=== PATIENT | male | born 1985 | race Caucasian/White ===

== ENCOUNTER 2016-07-06 14:29 | Emergency (ER) | payer SELFPAY ==
[~2016-07-06 14:29] MED LIST: CLIN150C PO; PERCOCET PO
--- NOTE | 2016-07-06 15:08 | EDDOCDS ---
Physician Documentation [facility] Name: Hernandez Jameson Age: 31 yrs Sex: Male : 1985 Arrival Date: 07/06/2016 Time: 14:29 Bed I1 / M1 Private MD: NO PRIMARY PHYSICIAN, . Disposition: 07/06/16 15:02 Discharged to Home/Self Care. Impression: Dental caries - Tooth Pain/Abscess/Fracture. - Condition is Stable. - Discharge Instructions: Dental Abscess, Dental Fracture, Dental Pain, [id number]. - Prescriptions for Clindamycin HCl 300 mg Oral Capsule - take 1 capsule by ORAL route every 6 hours; 40 capsule. Ibuprofen 800 mg Oral Tablet - take 1 tablet by ORAL route every 8 hours As needed take with food; 30 tablet. [place] 5- 325 mg Oral Tablet - take 1 tablet by ORAL route every 6 hours As needed MDD: 4 tabs; 10 tablet. - Work Release Form - 1 day, Medication Reconciliation, Local Pharmacy Hours, Referral List Call for Appointment, Dental Referral List form. - [facility] ; When: 1 - 2 days; Reason: Recheck today's complaints, Continuance of care. Follow up: Dentist Your; When: 1 - 2 days; Reason: Further diagnostic work-up, Recheck today's complaints, Continuance of care. Follow up: Emergency Department; Reason: Worsening of conditions. - Problem is new. - Symptoms are unchanged. Historical: - Allergies: Augmentin (Rash); PENICILLINS (Rash); - Home Meds: 1. hydrocodone-acetaminophen 5-325 mg Oral tab 1 tab every 4-6 hours (Last dose: 05/05/2016) - PMHx: right knee pain; dental caries; - PSHx: right knee orthoscopy; oral surgery; - Social history: Smoking status: Patient uses tobacco products, heavy tobacco smoker. No barriers to communication noted, Speaks appropriately for age. - Family history: Not pertinent. - : The pt / caregiver states he / she is not on anticoagulants. Home medication list is obtained from the patient. - Exposure Risk Screening:: None identified. Vital Signs: 07/06 14:31 BP 132 / 82 RA Sitting (auto/lg); Pulse 89; Resp 18; Temp 98.1(O); Pulse Ox 98% on R/A; rs6 Weight 104.33 kg / 230.01 lbs (R); Height 6 ft. 4 in. (193.04 cm) (R); Pain 9; 14:31 Body Mass Index 28.00 (104.33 kg, 193.04 cm) rs6 MDM: 14:54 Financial registration complete. Signatures: Chelsi Forman, Reg Reg lg Parvin Charles, KINGC PARmC ef1 Avery Kearns, RN RN ml6 Adela PintoRN RN [id number] MTDD
--- NOTE | 2016-07-06 15:08 | EDDOCDS ---
Nurse's Notes [facility] Name: Hernandez Jameson Age: 31 yrs Sex: Male : 1985 Arrival Date: 07/06/2016 Time: 14:29 Bed I1 / M1 Private MD: NO PRIMARY PHYSICIAN, . Diagnosis: Dental caries-Tooth Pain/Abscess/Fracture Presentation: 07/06 14:32 Presenting complaint: Patient states: states that he is in between insurances and has ml6 no Rx for hydrocodone and he also broke a tooth. Adult Sepsis Screening: The patient does not have new or worsening altered mentation. Patient's respiratory rate is less than 22. Systolic blood pressure is greater than 100. Patient has a qSOFA score of 0- Negative Sepsis Screen. Suicide/Homicide risk assessment- the patient denies having any suicidal and/or homicidal ideations and does not present with any other emotional, behavioral or mental health complaints. Status: Patient is not a services coordinator or dependent. Transition of care: patient was not received from another setting of care. 14:32 Acuity: ENMANUEL Level 5 ml6 14:32 Method Of Arrival: Walkin/Carried/Asstd ml6 Triage Assessment: 14:46 General: Appears in no apparent distress, comfortable, Behavior is appropriate for age, ml6 cooperative. Pain: Location: mouth Pain currently is 5 out of 10 on a pain scale. Pain does not radiate. Quality of pain is described as aching, Pain began years ago. Is continuous. HIV screening NA for this visit Offered previously. The patient is triaged at the bedside. See Assessment in Nurses Notes section of ED record. EENT: Poor dentition noted. Reports pain in mouth. Cardiovascular: No deficits noted. Historical: - Allergies: Augmentin (Rash); PENICILLINS (Rash); - Home Meds: 1. hydrocodone-acetaminophen 5-325 mg Oral tab 1 tab every 4-6 hours (Last dose: 05/05/2016) - PMHx: right knee pain; dental caries; - PSHx: right knee orthoscopy; oral surgery; - Social history: Smoking status: Patient uses tobacco products, heavy tobacco smoker. No barriers to communication noted, Speaks appropriately for age. - Family history: Not pertinent. - : The pt / caregiver states he / she is not on anticoagulants. Home medication list is obtained from the patient. - Exposure Risk Screening:: None identified. Screenin:06 Screening information is obtained from the patient. Fall risk: No risks identified. ml6 Assistance ADL's: requires no assistance with activities of daily living. Abuse/DV Screen: The patient / caregiver reports he/she is: not in a situation that causes fear, pain or injury. Nutritional screening: No deficits noted. Advance Directives: Currently, there is no health care proxy. home support is adequate. Assessment: 14:33 General: see triage assessment. ml6 Vital Signs: 14:31 BP 132 / 82 RA Sitting (auto/lg); Pulse 89; Resp 18; Temp 98.1(O); Pulse Ox 98% on R/A; rs6 Weight 104.33 kg (R); Height 6 ft. 4 in. (193.04 cm) (R); Pain 9/10; 14:31 Body Mass Index 28.00 (104.33 kg, 193.04 cm) rs6 Vitals: 14:31 Log In Time: July 06, 2016 at 14:31. rs6 ED Course: 14:31 Patient visited by Vanessa Pal PCA. rs6 14:31 NO PRIMARY PHYSICIAN, . is Private Physician. rs6 14:31 Patient moved to Waiting rs6 14:32 Patient visited by Vanessa Pal PCA. rs6 14:32 Patient moved to Pre RCE rs6 14:33 Patient moved to I1 / M1 ml6 14:34 Parvin Charles PA-C is PHCP. ef1 14:34 Vanessa Peterson MD is Attending Physician. ef1 14:34 Patient visited by Parvin Charles PA-C. ef1 14:41 Triage Initiated ml6 15:02 [facility] is Referral Physician. ef1 15:02 Your, Dentist is Referral Physician. ef1 15:06 The patient / caregiver is instructed regarding the plan of care and ED course. ml6 15:06 No IV's were initiated during this patient's visit. No procedures done that require ml6 assistance. Order Results: There are currently no results for this order. Outcome: 15:02 Discharge ordered by Provider. ef1 15:07 Discharge Assessment: patient administered narcotics - no. The following High Risk ml6 Discharge criteria are identified: None. Discharged to home ambulatory. Condition: stable. Discharge instructions given to patient, Instructed on discharge instructions, follow up and referral plans. medication usage, Demonstrated understanding of instructions, medications, Pt was receptive of discharge instructions/ teaching. Prescriptions given X 4. No special radiology studies were completed. Property :Personal belongings accompany Pt. 15:08 Patient left the ED. ml6 Signatures: Parvin Charles, [place] FIGUEROA ef1 Avery Kearns RN RN ml6 Adela Pinto RN RN [id number] Vanessa Pal, JESU CUT OUT PRESS OPERATOR rs6 MTDD
--- NOTE | 2016-07-08 16:08 | EDDOCDS ---
Physician Documentation [facility] Name: Hernandez Jameson Age: 31 yrs Sex: Male : 1985 Arrival Date: 07/06/2016 Time: 14:29 Bed I1 / M1 Private MD: NO PRIMARY PHYSICIAN, . Disposition: 07/06/16 15:02 Discharged to Home/Self Care. Impression: Dental caries - Tooth Pain/Abscess/Fracture. - Condition is Stable. - Discharge Instructions: Dental Abscess, Dental Fracture, Dental Pain, [id number]. - Prescriptions for Clindamycin HCl 300 mg Oral Capsule - take 1 capsule by ORAL route every 6 hours; 40 capsule. Ibuprofen 800 mg Oral Tablet - take 1 tablet by ORAL route every 8 hours As needed take with food; 30 tablet. [place] 5- 325 mg Oral Tablet - take 1 tablet by ORAL route every 6 hours As needed MDD: 4 tabs; 10 tablet. - Work Release Form - 1 day, Medication Reconciliation, Local Pharmacy Hours, Referral List Call for Appointment, Dental Referral List form. - Follow up: [facility] ; When: 1 - 2 days; Reason: Recheck today's complaints, Continuance of care. Follow up: Dentist Your; When: 1 - 2 days; Reason: Further diagnostic work-up, Recheck today's complaints, Continuance of care. Follow up: Emergency Department; Reason: Worsening of conditions. - Problem is new. - Symptoms are unchanged. Historical: - Allergies: Augmentin (Rash); PENICILLINS (Rash); - Home Meds: 1. hydrocodone-acetaminophen 5-325 mg Oral tab 1 tab every 4-6 hours (Last dose: 05/05/2016) - PMHx: right knee pain; dental caries; - PSHx: right knee orthoscopy; oral surgery; - Social history: Smoking status: Patient uses tobacco products, heavy tobacco smoker. No barriers to communication noted, Speaks appropriately for age. - Family history: Not pertinent. - : The pt / caregiver states he / she is not on anticoagulants. Home medication list is obtained from the patient. - Exposure Risk Screening:: None identified. Vital Signs: 07/06 14:31 BP 132 / 82 RA Sitting (auto/lg); Pulse 89; Resp 18; Temp 98.1(O); Pulse Ox 98% on R/A; rs6 Weight 104.33 kg / 230.01 lbs (R); Height 6 ft. 4 in. (193.04 cm) (R); Pain 9/10; 14:31 Body Mass Index 28.00 (104.33 kg, 193.04 cm) rs6 MDM: 14:54 Financial registration complete. lg 15:18 [facility] Payment Agreement was scanned into [employer] and attached to record. lg 16:04 T-Sheet-- Draft Copy was scanned into [employer] and attached to record. gb Signatures: Hilda Mera, Reg Reg gb Chelsi Forman, Reg Reg lg Parvin Charles, PA-C PA-C ef1 Avery Kearns, RN RN ml6 Adela PintoRN RN [id number] The chart was reviewed and I authenticate all verbal orders and agree with the evaluation and treatment provided.Attachments: 15:18 [facility] Payment Agreement lg 16:04 T-Sheet-- Draft Copy gb Chart Complete MTDD
--- NOTE | 2016-07-08 16:08 | EDDOCDS ---
Nurse's Notes [facility] Name: Hernandez Jameson Age: 31 yrs Sex: Male : 1985 Arrival Date: 07/06/2016 Time: 14:29 Bed I1 / M1 Private MD: NO PRIMARY PHYSICIAN, . Diagnosis: Dental caries-Tooth Pain/Abscess/Fracture Presentation: 07/06 14:32 Presenting complaint: Patient states: states that he is in between insurances and has ml6 no Rx for hydrocodone and he also broke a tooth. Adult Sepsis Screening: The patient does not have new or worsening altered mentation. Patient's respiratory rate is less than 22. Systolic blood pressure is greater than 100. Patient has a qSOFA score of 0- Negative Sepsis Screen. Suicide/Homicide risk assessment- the patient denies having any suicidal and/or homicidal ideations and does not present with any other emotional, behavioral or mental health complaints. Status: Patient is not a account service associate or dependent. Transition of care: patient was not received from another setting of care. 14:32 Acuity: ENMANUEL Level 5 ml6 14:32 Method Of Arrival: Walkin/Carried/Asstd ml6 Triage Assessment: 14:46 General: Appears in no apparent distress, comfortable, Behavior is appropriate for age, ml6 cooperative. Pain: Location: mouth Pain currently is 5 out of 10 on a pain scale. Pain does not radiate. Quality of pain is described as aching, Pain began years ago. Is continuous. HIV screening NA for this visit Offered previously. The patient is triaged at the bedside. See Assessment in Nurses Notes section of ED record. EENT: Poor dentition noted. Reports pain in mouth. Cardiovascular: No deficits noted. Historical: - Allergies: Augmentin (Rash); PENICILLINS (Rash); - Home Meds: 1. hydrocodone-acetaminophen 5-325 mg Oral tab 1 tab every 4-6 hours (Last dose: 05/05/2016) - PMHx: right knee pain; dental caries; - PSHx: right knee orthoscopy; oral surgery; - Social history: Smoking status: Patient uses tobacco products, heavy tobacco smoker. No barriers to communication noted, Speaks appropriately for age. - Family history: Not pertinent. - : The pt / caregiver states he / she is not on anticoagulants. Home medication list is obtained from the patient. - Exposure Risk Screening:: None identified. Screenin:06 Screening information is obtained from the patient. Fall risk: No risks identified. ml6 Assistance ADL's: requires no assistance with activities of daily living. Abuse/DV Screen: The patient / caregiver reports he/she is: not in a situation that causes fear, pain or injury. Nutritional screening: No deficits noted. Advance Directives: Currently, there is no health care proxy. home support is adequate. Assessment: 14:33 General: see triage assessment. ml6 Vital Signs: 14:31 BP 132 / 82 RA Sitting (auto/lg); Pulse 89; Resp 18; Temp 98.1(O); Pulse Ox 98% on R/A; rs6 Weight 104.33 kg (R); Height 6 ft. 4 in. (193.04 cm) (R); Pain 9/10; 14:31 Body Mass Index 28.00 (104.33 kg, 193.04 cm) rs6 Vitals: 14:31 Log In Time: July 06, 2016 at 14:31. rs6 ED Course: 14:31 Patient visited by Vanessa Pal PCA. rs6 14:31 NO PRIMARY PHYSICIAN, . is Private Physician. rs6 14:31 Patient moved to Waiting rs6 14:32 Patient visited by Vanessa Pal PCA. rs6 14:32 Patient moved to Pre RCE rs6 14:33 Patient moved to I1 / M1 ml6 14:34 Parvin Charles PA-C is PHCP. ef1 14:34 Vanessa Peterson MD is Attending Physician. ef1 14:34 Patient visited by Parvin Charles PA-C. ef1 14:41 Triage Initiated ml6 15:02 [facility] is Referral Physician. ef1 15:02 Your, Dentist is Referral Physician. ef1 15:06 The patient / caregiver is instructed regarding the plan of care and ED course. ml6 15:06 No IV's were initiated during this patient's visit. No procedures done that require ml6 assistance. 15:18 [facility] [place] Agreement was scanned into [employer] and attached to record. lg 16:04 T-Sheet-- Draft Copy was scanned into [employer] and attached to record. gb Order Results: There are currently no results for this order. Outcome: 15:02 Discharge ordered by Provider. ef1 15:07 Discharge Assessment: patient administered narcotics - no. The following High Risk ml6 Discharge criteria are identified: None. Discharged to home ambulatory. Condition: stable. Discharge instructions given to patient, Instructed on discharge instructions, follow up and referral plans. medication usage, Demonstrated understanding of instructions, medications, Pt was receptive of discharge instructions/ teaching. Prescriptions given X 4. No special radiology studies were completed. Property :Personal belongings accompany Pt. 15:08 Patient left the ED. ml6 Signatures: Hilda Mera, Reg Reg gb Chelsi Forman, Reg Reg lg Parvin Charles, PA-C PA-C ef1 Avery Kearns, RN RN ml6 Adela Pinto,MARY RN [id number] Vanessa Pal, JESU SUPERVISOR [employer] rs6 Chart Complete [facility]
--- NOTE | 2016-07-08 16:08 | EDDOCDS ---
Physician Documentation [facility] Name: Hernandez Jameson Age: 31 yrs Sex: Male : 1985 Arrival Date: 07/06/2016 Time: 14:29 Bed I1 / M1 Private MD: NO PRIMARY PHYSICIAN, . Disposition: 07/06/16 15:02 Discharged to Home/Self Care. Impression: Dental caries - Tooth Pain/Abscess/Fracture. - Condition is Stable. - Discharge Instructions: Dental Abscess, Dental Fracture, Dental Pain, [id number]. - Prescriptions for Clindamycin HCl 300 mg Oral Capsule - take 1 capsule by ORAL route every 6 hours; 40 capsule. Ibuprofen 800 mg Oral Tablet - take 1 tablet by ORAL route every 8 hours As needed take with food; 30 tablet. [place] 5- 325 mg Oral Tablet - take 1 tablet by ORAL route every 6 hours As needed MDD: 4 tabs; 10 tablet. - Work Release Form - 1 day, Medication Reconciliation, Local Pharmacy Hours, Referral List Call for Appointment, Dental Referral List form. - Follow up: [facility] ; When: 1 - 2 days; Reason: Recheck today's complaints, Continuance of care. Follow up: Dentist Your; When: 1 - 2 days; Reason: Further diagnostic work-up, Recheck today's complaints, Continuance of care. Follow up: Emergency Department; Reason: Worsening of conditions. - Problem is new. - Symptoms are unchanged. Historical: - Allergies: Augmentin (Rash); PENICILLINS (Rash); - Home Meds: 1. hydrocodone-acetaminophen 5-325 mg Oral tab 1 tab every 4-6 hours (Last dose: 05/05/2016) - PMHx: right knee pain; dental caries; - PSHx: right knee orthoscopy; oral surgery; - Social history: Smoking status: Patient uses tobacco products, heavy tobacco smoker. No barriers to communication noted, Speaks appropriately for age. - Family history: Not pertinent. - : The pt / caregiver states he / she is not on anticoagulants. Home medication list is obtained from the patient. - Exposure Risk Screening:: None identified. Vital Signs: 07/06 14:31 BP 132 / 82 RA Sitting (auto/lg); Pulse 89; Resp 18; Temp 98.1(O); Pulse Ox 98% on R/A; rs6 Weight 104.33 kg / 230.01 lbs (R); Height 6 ft. 4 in. (193.04 cm) (R); Pain 9/10; 14:31 Body Mass Index 28.00 (104.33 kg, 193.04 cm) rs6 MDM: 14:54 Financial registration complete. lg 15:18 [facility] Payment Agreement was scanned into [employer] and attached to record. lg 16:04 T-Sheet-- Draft Copy was scanned into [employer] and attached to record. gb Signatures: Hilda Mera, Reg Reg gb Chelsi Forman, Reg Reg lg Parvin Charles, PA-C PA-C ef1 Avery Kearns, RN RN ml6 Adela PintoRN RN [id number] The chart was reviewed and I authenticate all verbal orders and agree with the evaluation and treatment provided.Attachments: 15:18 [facility] Payment Agreement lg 16:04 T-Sheet-- Draft Copy gb Chart Complete MTDD
== END 2016-07-06 15:08 | disposition home or self-care (01) ==
LOC: M ED 14:29
DX: K04.7 Periapical abscess without sinus (principal); K02.9 Dental caries, unspecified; S02.5XXA Fracture of tooth (traumatic), initial encounter for closed fracture; X58.XXXA Exposure to other specified factors, initial encounter; Y92.89 Other specified places as the place of occurrence of the external cause; Y93.89 Activity, other specified; Y99.8 Other external cause status; M25.561 Pain in right knee; Z88.0 Allergy status to penicillin; Z88.1 Allergy status to other antibiotic agents; F17.210 Nicotine dependence, cigarettes, uncomplicated

== ENCOUNTER 2016-07-18 17:22 | Emergency (ER) | payer OTHER, SELFPAY ==
--- NOTE | 2016-07-18 18:34 | REP ---
Clinical: Trauma. Technique: AP, lateral, swimmers view. Findings: Degenerative changes including bridging osteophyte at the T9-10 level. Subtle compression deformities involving T9 and T10 on lateral radiograph are suggested and of indeterminate age. Alignment and kyphosis is relatively maintained. Impression: Degenerative changes as described above. Subtle compression deformities at T9 and T10 of indeterminate age. Signed by Dre Negro MD 07/18/2016 06:24 P
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
== END 2016-07-18 19:58 | disposition home or self-care (01) ==
LOC: M ED 17:22
DX: S22.079A Unspecified fracture of T9-T10 vertebra, initial encounter for closed fracture (principal); Z88.0 Allergy status to penicillin; Z88.1 Allergy status to other antibiotic agents; Z88.5 Allergy status to narcotic agent; V49.40XA Driver injured in collision with unspecified motor vehicles in traffic accident, initial encounter; Y92.410 Unspecified street and highway as the place of occurrence of the external cause; Y93.89 Activity, other specified; Y99.9 Unspecified external cause status

== ENCOUNTER 2016-07-26 18:11 | Emergency (ER) | payer OTHER ==
[2016-07-26] MEDS ORDERED: NORCO 5/325MG TABLET (BULK) As Ordered ONE (19:35)
--- NOTE | 2016-07-26 19:50 | EDDOCDS ---
Physician Documentation [facility] Name: Hernandez Jameson Age: 31 yrs Sex: Male : 1985 Arrival Date: 07/26/2016 Time: 18:11 Bed TR4 Private MD: NO PRIMARY PHYSICIAN, . Disposition: 07/26/16 19:06 Discharged to Home/Self Care. Impression: Low back pain. - Condition is Stable. - Discharge Instructions: Back Pain, Adult, Musculoskeletal Pain. - Prescriptions for [place] 5- 325 mg Oral Tablet - take 1 tablet by ORAL route every 6 hours As needed MDD: 4 tabs; 15 tablet. - Medication Reconciliation, Work Release Form - 2 day, Local Pharmacy Hours form. - [facility]; When: Call to arrange an appointment; Reason: Recheck today's complaints, Continuance of care. - Problem is an ongoing problem. - Symptoms are unchanged. Historical: - Allergies: Augmentin (Rash); codeine; PENICILLINS (Rash); - Home Meds: 1. hydrocodone-acetaminophen 5-325 mg Oral tab 1 tab every 4-6 hours - PMHx: Dental caries; right knee pain; - PSHx: right knee orthoscopy; oral surgery; - Social history: No barriers to communication noted, The patient speaks fluent Indian, Speaks appropriately for age, Smoking status: Patient states former smoker of tobacco. - Family history: Not pertinent. - : The pt / caregiver states he / she is not on anticoagulants. Home medication list is obtained from the patient. - Exposure Risk Screening:: None identified. Vital Signs: 07/26 18:12 BP 123 / 82; Pulse 69; Resp 16; Temp 97.9(O); Pulse Ox 100% ; Weight 104.33 kg / 230.01 cmb lbs; Height 6 ft. 4 in. (193.04 cm); Pain 10/10; 19:47 BP 123 / 88; Pulse 65; Resp 18; Temp 98; Pulse Ox 99% ; ms18 18:12 Body Mass Index 28.00 (104.33 kg, 193.04 cm) cmb MDM: 19:04 HYDROcodone-acetaminophen 4 pack- 5 mg-325 mg 1 packets PO Per package directions; mo1 Dispense with patient. 1 po q4h prn for pain ordered. 19:21 Financial registration complete. zo Administered Medications: 19:46 Drug: HYDROcodone-acetaminophen 4 pack- 1 packets [hydrocodone 5 mg-acetaminophen 325 ms18 mg tablet (1 tabs)] {Co-Signature: pita (Krystal Morillo RN).} Route: PO; 19:47 Follow up: Response: Med's dispensed home ms18 Signatures: Olivia Newman Michael, PA PA mo1 Millicent Jackman RN RN ms18 Eboni Cristina RN RN [id number] Krystal Morillo RN, mcp MTDD
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
--- NOTE | 2016-07-28 20:51 | EDDOCDS ---
Physician Documentation [facility] Name: Hernandez Jameson Age: 31 yrs Sex: Male : 1985 Arrival Date: 07/26/2016 Time: 18:11 Bed TR4 Private MD: NO PRIMARY PHYSICIAN, . Disposition: 07/26/16 19:06 Discharged to Home/Self Care. Impression: Low back pain. - Condition is Stable. - Discharge Instructions: Back Pain, Adult, Musculoskeletal Pain. - Prescriptions for [place] 5- 325 mg Oral Tablet - take 1 tablet by ORAL route every 6 hours As needed MDD: 4 tabs; 15 tablet. - Medication Reconciliation, Work Release Form - 2 day, Local Pharmacy Hours form. - Follow up: [facility]; When: Call to arrange an appointment; Reason: Recheck today's complaints, Continuance of care. - Problem is an ongoing problem. - Symptoms are unchanged. Historical: - Allergies: Augmentin (Rash); codeine; PENICILLINS (Rash); - Home Meds: 1. hydrocodone-acetaminophen 5-325 mg Oral tab 1 tab every 4-6 hours - PMHx: Dental caries; right knee pain; - PSHx: right knee orthoscopy; oral surgery; - Social history: No barriers to communication noted, The patient speaks fluent East Timorese, Speaks appropriately for age, Smoking status: Patient states former smoker of tobacco. - Family history: Not pertinent. - : The pt / caregiver states he / she is not on anticoagulants. Home medication list is obtained from the patient. - Exposure Risk Screening:: None identified. Vital Signs: 07/26 18:12 BP 123 / 82; Pulse 69; Resp 16; Temp 97.9(O); Pulse Ox 100% ; Weight 104.33 kg / 230.01 cmb lbs; Height 6 ft. 4 in. (193.04 cm); Pain 10/10; 19:47 BP 123 / 88; Pulse 65; Resp 18; Temp 98; Pulse Ox 99% ; ms18 18:12 Body Mass Index 28.00 (104.33 kg, 193.04 cm) cmb MDM: 19:04 HYDROcodone-acetaminophen 4 pack- 5 mg-325 mg 1 packets PO Per package directions; mo1 Dispense with patient. 1 po q4h prn for pain ordered. 19:21 Financial registration complete. zo 19:59 [facility] Payment Agreement was scanned into [employer] and attached to record. zo 07/27 09:29 T-Sheet-- Draft Copy was scanned into [employer] and attached to record. [facility] Administered Medications: 07/26 19:46 Drug: HYDROcodone-acetaminophen 4 pack- 1 packets [hydrocodone 5 mg-acetaminophen 325 ms18 mg tablet (1 tabs)] {Co-Signature: mcp (Krystal Morillo RN).} Route: PO; 19:47 Follow up: Response: Med's dispensed home ms18 Signatures: Olivia Newman Michael, PA PA mo1 Millicent Jackman RN RN ms18 Eboni Cristina RN RN kc3 Vanessa Mayorga RN, mcp The chart was reviewed and I authenticate all verbal orders and agree with the evaluation and treatment provided.Attachments: 19:59 [facility] Payment Agreement zo 07/27 09:29 T-Sheet-- Draft Copy [facility] Chart Complete MTDD
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
--- NOTE | 2016-07-28 20:51 | EDDOCDS ---
Physician Documentation [facility] Name: Hernandez Jameson Age: 31 yrs Sex: Male : 1985 Arrival Date: 07/26/2016 Time: 18:11 Bed TR4 Private MD: NO PRIMARY PHYSICIAN, . Disposition: 07/26/16 19:06 Discharged to Home/Self Care. Impression: Low back pain. - Condition is Stable. - Discharge Instructions: Back Pain, Adult, Musculoskeletal Pain. - Prescriptions for [place] 5- 325 mg Oral Tablet - take 1 tablet by ORAL route every 6 hours As needed MDD: 4 tabs; 15 tablet. - Medication Reconciliation, Work Release Form - 2 day, Local Pharmacy Hours form. - Follow up: [facility]; When: Call to arrange an appointment; Reason: Recheck today's complaints, Continuance of care. - Problem is an ongoing problem. - Symptoms are unchanged. Historical: - Allergies: Augmentin (Rash); codeine; PENICILLINS (Rash); - Home Meds: 1. hydrocodone-acetaminophen 5-325 mg Oral tab 1 tab every 4-6 hours - PMHx: Dental caries; right knee pain; - PSHx: right knee orthoscopy; oral surgery; - Social history: No barriers to communication noted, The patient speaks fluent Bulgarian, Speaks appropriately for age, Smoking status: Patient states former smoker of tobacco. - Family history: Not pertinent. - : The pt / caregiver states he / she is not on anticoagulants. Home medication list is obtained from the patient. - Exposure Risk Screening:: None identified. Vital Signs: 07/26 18:12 BP 123 / 82; Pulse 69; Resp 16; Temp 97.9(O); Pulse Ox 100% ; Weight 104.33 kg / 230.01 cmb lbs; Height 6 ft. 4 in. (193.04 cm); Pain 10/10; 19:47 BP 123 / 88; Pulse 65; Resp 18; Temp 98; Pulse Ox 99% ; ms18 18:12 Body Mass Index 28.00 (104.33 kg, 193.04 cm) cmb MDM: 19:04 HYDROcodone-acetaminophen 4 pack- 5 mg-325 mg 1 packets PO Per package directions; mo1 Dispense with patient. 1 po q4h prn for pain ordered. 19:21 Financial registration complete. zo 19:59 [facility] Payment Agreement was scanned into [email or web address] and attached to record. zo 07/27 09:29 T-Sheet-- Draft Copy was scanned into [email or web address] and attached to record. [facility] Administered Medications: 07/26 19:46 Drug: HYDROcodone-acetaminophen 4 pack- 1 packets [hydrocodone 5 mg-acetaminophen 325 ms18 mg tablet (1 tabs)] {Co-Signature: mcp (Krystal Morillo RN).} Route: PO; 19:47 Follow up: Response: Med's dispensed home ms18 Signatures: Olivia Newman Michael, PA PA mo1 Millicent Jackman RN RN ms18 Eboni Cristina RN RN kc3 Vanessa Mayorga RN, mcp The chart was reviewed and I authenticate all verbal orders and agree with the evaluation and treatment provided.Attachments: 19:59 [facility] Payment Agreement zo 07/27 09:29 T-Sheet-- Draft Copy [facility] Chart Complete MTDD
== END 2016-07-26 19:49 | disposition home or self-care (01) ==
LOC: M ED 18:11
DX: S39.012A Strain of muscle, fascia and tendon of lower back, initial encounter (principal); X58.XXXA Exposure to other specified factors, initial encounter; Y92.9 Unspecified place or not applicable; Y93.9 Activity, unspecified; Y99.9 Unspecified external cause status; K02.9 Dental caries, unspecified; M25.561 Pain in right knee; Z87.891 Personal history of nicotine dependence; Z88.5 Allergy status to narcotic agent; Z88.0 Allergy status to penicillin

== ENCOUNTER 2016-08-03 13:47 | Emergency (ER) | payer OTHER ==
[~2016-08-03] VITALS: Ht 193 cm; Wt 104.3 kg
[2016-08-03 13:47] VITALS: BP 123/80
[2016-08-03] MEDS ORDERED: KETOROLAC 30 MG/ML VIAL (J1885) IV ONE (15:15)
[2016-08-03] MEDS ORDERED: NAPR500T PO (16:32)
[2016-08-03] MEDS ORDERED: LIDO5DIS36 TD (16:32)
[2016-08-03] MEDS ORDERED: CYCL10TA PO (16:32)
--- NOTE | 2016-08-04 07:56 | REP ---
THORACIC SPINE: AP and lateral views of the thoracic spine performed. Mild compression deformities are again see of the T3 vertebral body, T10, T11 and T12. Scattered spurring is seen. There is no change since the prior study of 07/18/2016. IMPRESSION: Stable exam. Signed by Carroll Salazar MD 08/04/2016 04:10 P
== END 2016-08-03 17:23 | disposition home or self-care (01) ==
LOC: M ED 15:40
DX: S22.078D Other fracture of T9-T10 vertebra, subsequent encounter for fracture with routine healing (principal); V49.9XXD Car occupant (driver) (passenger) injured in unspecified traffic accident, subsequent encounter; Y92.410 Unspecified street and highway as the place of occurrence of the external cause; Y93.89 Activity, other specified; Y99.8 Other external cause status; F17.200 Nicotine dependence, unspecified, uncomplicated; Z88.0 Allergy status to penicillin; Z88.5 Allergy status to narcotic agent
CPT/HCPCS: 72072; 96374; 99281; J1885

== ENCOUNTER 2017-02-24 18:28 | Emergency (ER) | payer OTHER ==
[~2017-02-24] VITALS: Ht 193 cm; Wt 110.5 kg
[~2017-02-24 18:28] MED LIST changes: +CYCL10TA PO; +LIDO5DIS41 TD; +NAPR500T PO
[2017-02-24 18:29] VITALS: BP 129/75
== END 2017-02-24 20:22 | disposition left against medical advice (07) ==
LOC: M ED 18:28
DX: M54.2 Cervicalgia (principal); Z53.21 Procedure and treatment not carried out due to patient leaving prior to being seen by health care provider

== ENCOUNTER 2017-03-10 17:23 | Emergency (ER) | payer OTHER ==
[~2017-03-10] VITALS: Ht 193 cm; Wt 111.0 kg
[2017-03-10] MEDS ORDERED: KETOROLAC TROMETHAMINE 10 MG TAB PO ONE (19:15)
[2017-03-10] MEDS ORDERED: MOBI4TAB PO (20:19)
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
[2017-03-10 20:39] VITALS: BP 129/79
== END 2017-03-10 20:41 | disposition home or self-care (01) ==
LOC: M ED 17:23
DX: R07.2 Precordial pain (principal); M54.2 Cervicalgia; M25.532 Pain in left wrist; V43.52XA Car driver injured in collision with other type car in traffic accident, initial encounter; Y92.410 Unspecified street and highway as the place of occurrence of the external cause; Y93.9 Activity, unspecified; Y99.9 Unspecified external cause status; G89.29 Other chronic pain; M54.9 Dorsalgia, unspecified; Z79.899 Other long term (current) drug therapy; Z88.0 Allergy status to penicillin; Z88.5 Allergy status to narcotic agent

== ENCOUNTER 2017-06-30 10:26 | Emergency (ER) | payer MEDICAID, OTHER ==
[2017-06-30] MEDS: CYCLOBENZAPRINE 10 MG TAB PO ×2 (11:18)
[2017-06-30] MEDS: NORCO, ANEXSIA 5/325MG TABLET (HYDROcodone/ACETAMINOPHEN) PO ×2 (11:20)
== END 2017-06-30 11:35 | disposition home or self-care (01) ==
LOC: M ED 10:26
DX: S46.011A Strain of muscle(s) and tendon(s) of the rotator cuff of right shoulder, initial encounter (principal); S43.431A Superior glenoid labrum lesion of right shoulder, initial encounter; M75.31 Calcific tendinitis of right shoulder; M50.20 Other cervical disc displacement, unspecified cervical region; F17.200 Nicotine dependence, unspecified, uncomplicated; X58.XXXA Exposure to other specified factors, initial encounter; Y92.099 Unspecified place in other non-institutional residence as the place of occurrence of the external cause; Y93.89 Activity, other specified; Z88.0 Allergy status to penicillin; Z88.5 Allergy status to narcotic agent
CPT/HCPCS: 99282

== ENCOUNTER 2017-07-03 13:58 | Emergency (ER) | payer MEDICAID, OTHER | END 2017-07-03 15:15 | disposition home or self-care (01) | LOC: M ED 13:58 | DX: S46.911A Strain of unspecified muscle, fascia and tendon at shoulder and upper arm level, right arm, initial encounter (principal); Z76.0 Encounter for issue of repeat prescription; X58.XXXA Exposure to other specified factors, initial encounter; Y92.9 Unspecified place or not applicable; Y93.9 Activity, unspecified; Z79.899 Other long term (current) drug therapy; Z88.0 Allergy status to penicillin; Z88.5 Allergy status to narcotic agent; Z88.8 Allergy status to other drugs, medicaments and biological substances | CPT/HCPCS: 99284 ==

== ENCOUNTER → 2017-07-16 | Outpatient (CLI) | payer MEDICAID, OTHER | LOC: M RAD 14:36 | DX: M54.2 Cervicalgia (principal); M25.511 Pain in right shoulder; M79.621 Pain in right upper arm | CPT/HCPCS: 72141 ==

== ENCOUNTER 2017-10-05 12:36 | Inpatient (IN) | payer OTHER, MEDICAID ==
[2017-10-05] MEDS: PERCOCET 5MG/325MG TAB PO ×2 (13:33→20:55)
[2017-10-05] MEDS: GABAPENTIN 300 MG CAP PO (13:33)
[2017-10-05] MEDS: LR 1,000 ML IV ×2 (13:34→20:00)
[2017-10-05] MEDS ORDERED: MIDAZOLAM INJ 2 MG/2 ML VIAL (J2250) As Ordered (13:47)
[2017-10-05] MEDS ORDERED: fentaNYL 100 MCG/2 ML INJECTION (J3010) As Ordered ×4 (13:47→19:04)
[2017-10-05] MEDS ORDERED: ROCURONIUM BROMIDE 50 MG/5 ML VIAL As Ordered ×3 (13:48→17:44)
[2017-10-05] MEDS ORDERED: PROPOFOL 200 MG/20 ML VIAL As Ordered (13:48)
[2017-10-05] MEDS ORDERED: LIDOCAINE 2% INJ 100 MG/5 ML SDV (FOR ANES.) As Ordered (14:25)
[2017-10-05] MEDS: CLINDAMYCIN 900 MG in APPROPRIATE DILUENT 1 EA IV (14:55)
[2017-10-05] MEDS: THROMBIN SOLN 20,000 UNITS KIT As Ordered (17:14)
[2017-10-05] MEDS: BACITRACIN PWD 50,000 UNITS VIAL As Ordered (17:14)
[2017-10-05] MEDS ORDERED: dexameTHASONE 4 MG/ML 1ML VIAL (J1100) As Ordered ×2 (18:28)
[2017-10-05] MEDS ORDERED: METOCLOPRAMIDE INJ 10MG/2ML VIAL (J2765) As Ordered (18:28)
[2017-10-05] MEDS ORDERED: ONDANSETRON 4MG/2ML VIAL (J2405) As Ordered (18:29)
[2017-10-05] MEDS: methylPREDNISolone 500 MG VIAL (J2930) As Ordered (18:50)
[2017-10-05] MEDS: LIDOCAINE W/EPINEPHRINE 1% 20ML VIAL As Ordered (18:50)
[2017-10-05] MEDS ORDERED: CYCLOBENZAPRINE 10 MG TAB PO (20:00)
[2017-10-05] MEDS ORDERED: HYDROmorphone HCL 1 MG/ML SYRINGE (J1170) IV ×2 (20:00)
[2017-10-05] MEDS: D5W/LR 1,000 ML IV (20:00)
[2017-10-05] MEDS ORDERED: ONDANSETRON 4MG/2ML VIAL (J2405) IV (20:00)
[2017-10-05] MEDS ORDERED: PROMETHAZINE INJ 25 MG/ML VIAL (J2550) IV (20:00)
[2017-10-05] MEDS ORDERED: fentaNYL 100 MCG/2 ML INJECTION (J3010) IV (20:00)
[2017-10-05] MEDS: NORCO, ANEXSIA 5/325MG TABLET (HYDROcodone/ACETAMINOPHEN) PO (20:46)
[2017-10-06] MEDS: PERCOCET 5MG/325MG TAB PO ×3 (01:06→09:42)
[2017-10-06] MEDS: D5W/LR 1,000 ML IV (05:48)
== END 2017-10-06 11:45 | disposition home or self-care (01) | DRG 321 ==
LOC: M OR 12:36 → M MS5PR 20:19
PROC: 0RG2070 Fusion of 2 or more Cervical Vertebral Joints with Autologous Tissue Substitute, Anterior Approach, Anterior Column, Open Approach (ICD-10-PCS; principal; 2017-10-05 14:20)
PROC: 0QB30ZZ Excision of Left Pelvic Bone, Open Approach (ICD-10-PCS; 2017-10-05 14:20)
PROC: 0RB30ZZ Excision of Cervical Vertebral Disc, Open Approach (ICD-10-PCS; 2017-10-05 14:20)
DX: M50.20 Other cervical disc displacement, unspecified cervical region (principal)

== ENCOUNTER 2017-11-09 15:10 | Emergency (ER) | payer OTHER | END 2017-11-09 18:10 | disposition home or self-care (01) | LOC: M ED 15:10 | DX: Z76.0 Encounter for issue of repeat prescription (principal); M54.2 Cervicalgia; G89.29 Other chronic pain; Z98.1 Arthrodesis status; F17.200 Nicotine dependence, unspecified, uncomplicated; Z88.0 Allergy status to penicillin; Z79.899 Other long term (current) drug therapy | CPT/HCPCS: 99283 ==

== ENCOUNTER → 2017-11-25 | Outpatient (CLI) | payer OTHER | LOC: M OUTALCOH 08:10 | DX: Z03.89 Encounter for observation for other suspected diseases and conditions ruled out (principal) ==

== ENCOUNTER 2018-01-16 12:34 | Emergency (ER) | payer OTHER | END 2018-01-16 15:02 | disposition home or self-care (01) | LOC: M ED 12:34 | DX: Z76.0 Encounter for issue of repeat prescription (principal); G89.29 Other chronic pain; M54.2 Cervicalgia; Z79.899 Other long term (current) drug therapy; Z88.0 Allergy status to penicillin; Z88.8 Allergy status to other drugs, medicaments and biological substances | CPT/HCPCS: 99282 ==

== ENCOUNTER 2018-01-19 15:26 | Emergency (ER) | payer OTHER | END 2018-01-19 16:25 | disposition home or self-care (01) | LOC: M ED 15:26 | DX: Z76.0 Encounter for issue of repeat prescription (principal); M54.2 Cervicalgia; G89.29 Other chronic pain; F17.210 Nicotine dependence, cigarettes, uncomplicated; Z88.0 Allergy status to penicillin; Z79.899 Other long term (current) drug therapy | CPT/HCPCS: 99282 ==

== ENCOUNTER 2018-03-22 13:15 | Emergency (ER) | payer OTHER | END 2018-03-22 16:01 | disposition home or self-care (01) | LOC: M ED 13:15 | DX: M54.2 Cervicalgia (principal); G89.29 Other chronic pain; F17.210 Nicotine dependence, cigarettes, uncomplicated; Z79.899 Other long term (current) drug therapy | CPT/HCPCS: 99282 ==

== ENCOUNTER 2018-04-03 12:30 | Emergency (ER) | payer OTHER | END 2018-04-03 14:33 | disposition home or self-care (01) | LOC: M ED 12:30 | DX: Z76.0 Encounter for issue of repeat prescription (principal); G89.29 Other chronic pain; M54.2 Cervicalgia; Z88.0 Allergy status to penicillin; Z88.8 Allergy status to other drugs, medicaments and biological substances | CPT/HCPCS: 99283 ==

== ENCOUNTER 2018-08-29 11:58 | Emergency (ER) | payer OTHER ==
[~2018-08-29] VITALS: Ht 193 cm; Wt 113.6 kg
[2018-08-29 11:58] VITALS: BP 128/82
[~2018-08-29 11:58] MED LIST changes: +ACET300T52 PO; +GABA-843 PO; +HYDR-3715 PO; +IBUP-1022 PO; +IBUP200C25 PO; +KETO10TAB PO; +MOBI4TAB PO; +NAPR-837 PO; -NAPR500T PO; +OXYC1TAB23 PO; +PERC5TAB12 PO; -PERCOCET PO
[2018-08-29] MEDS ORDERED: OXYC1TAB23 PO (12:04)
[2018-08-29] MEDS ORDERED: IBUP80TA (12:04)
[2018-08-29] MEDS ORDERED: ROBA500T PO (12:40)
[2018-08-29] MEDS ORDERED: PERC5TAB12 PO (12:40)
[2018-08-29] MEDS ORDERED: PERCOCET 5MG/325MG TAB PO ONE (12:45)
[2018-08-29] MEDS ORDERED: METHOCARBAMOL 500 MG TAB PO ONE (12:45)
== END 2018-08-29 12:49 | disposition home or self-care (01) ==
LOC: M ED 11:58
DX: M47.12 Other spondylosis with myelopathy, cervical region (principal); M47.22 Other spondylosis with radiculopathy, cervical region; F17.210 Nicotine dependence, cigarettes, uncomplicated; Z88.8 Allergy status to other drugs, medicaments and biological substances; Z88.0 Allergy status to penicillin; Z79.899 Other long term (current) drug therapy

== ENCOUNTER 2018-10-12 17:16 | Emergency (ER) | payer OTHER ==
[~2018-10-12] VITALS: Ht 193 cm; Wt 113.6 kg
[2018-10-12 17:16] VITALS: BP 133/82
[~2018-10-12 17:16] MED LIST changes: +IBUP80TA; +ROBA500T PO
[2018-10-12] MEDS ORDERED: ACET300T52 (17:30)
[2018-10-12] MEDS ORDERED: NORC1TAB7 PO (18:03)
== END 2018-10-12 18:30 | disposition home or self-care (01) ==
LOC: M ED 17:16
DX: G89.29 Other chronic pain (principal); M54.2 Cervicalgia; Z88.0 Allergy status to penicillin; Z88.8 Allergy status to other drugs, medicaments and biological substances; F17.210 Nicotine dependence, cigarettes, uncomplicated

== ENCOUNTER 2018-11-21 14:06 | Emergency (ER) | payer OTHER ==
[~2018-11-21] VITALS: Ht 193 cm; Wt 102.3 kg
[~2018-11-21 14:06] MED LIST changes: +ACET300T52; +NORC1TAB7 PO
[2018-11-21] MEDS ORDERED: NORC1TAB7 PO (15:34)
[2018-11-21 15:48] VITALS: BP 117/68
[2018-12-07] MEDS ORDERED: NORC1TAB7 PO (13:41)
== END 2018-11-21 15:49 | disposition home or self-care (01) ==
LOC: M ED 14:06
DX: M54.2 Cervicalgia (principal); F17.210 Nicotine dependence, cigarettes, uncomplicated; Z88.1 Allergy status to other antibiotic agents

== ENCOUNTER 2018-11-28 15:09 | Emergency (ER) | payer OTHER ==
[~2018-11-28] VITALS: Ht 193 cm; Wt 104.7 kg
[2018-11-28 15:10] VITALS: BP 135/85
[2018-11-28] MEDS ORDERED: NABU-119 PO (15:32)
[2018-11-28] MEDS ORDERED: CYCL10TA PO (15:32)
[2018-11-28] MEDS ORDERED: HYDR-3713 PO (15:57)
[2018-12-07] MEDS ORDERED: NORC1TAB7 PO (13:41)
== END 2018-11-28 16:07 | disposition home or self-care (01) ==
LOC: M ED 15:09
DX: M54.12 Radiculopathy, cervical region (principal); Z88.0 Allergy status to penicillin; Z88.8 Allergy status to other drugs, medicaments and biological substances; F17.210 Nicotine dependence, cigarettes, uncomplicated

== ENCOUNTER 2019-02-17 16:49 | Emergency (ER) | payer OTHER, MEDICAID ==
[~2019-02-17] VITALS: Ht 193 cm; Wt 104.2 kg
[~2019-02-17 16:49] MED LIST changes: +HYDR-3713 PO; +NABU-119 PO
[2019-02-17 16:50] VITALS: BP 123/83
[2019-02-17] MEDS ORDERED: GABA-843 (16:55)
[2019-02-17] MEDS ORDERED: ACET300T52 (16:55)
[2019-02-17] MEDS ORDERED: NORC1TAB7 PO (17:43)
[2019-02-17] MEDS ORDERED: NORCO, ANEXSIA 5/325MG TABLET (HYDROcodone/ACETAMINOPHEN) PO ONE (18:15)
== END 2019-02-17 18:27 | disposition home or self-care (01) ==
LOC: M ED 16:49
DX: Z76.0 Encounter for issue of repeat prescription (principal); G89.29 Other chronic pain; M54.2 Cervicalgia; Z88.0 Allergy status to penicillin; Z88.8 Allergy status to other drugs, medicaments and biological substances; F17.210 Nicotine dependence, cigarettes, uncomplicated

== ENCOUNTER 2019-03-24 00:48 | Emergency (ER) | payer MEDICAID, OTHER ==
[~2019-03-24] VITALS: Ht 193 cm; Wt 107.6 kg
[~2019-03-24 00:48] MED LIST changes: +GABA-843
[2019-03-24] MEDS ORDERED: CARBAMIDE PEROXIDE 6.5% OTIC SOLN 15ML AU ONE (03:45)
[2019-03-24] MEDS ORDERED: DEBR6.5S4 AU (03:54)
[2019-03-24 04:05] VITALS: BP 121/68
== END 2019-03-24 04:08 | disposition home or self-care (01) ==
LOC: M ED 00:48
DX: H61.23 Impacted cerumen, bilateral (principal); F17.200 Nicotine dependence, unspecified, uncomplicated; Z88.1 Allergy status to other antibiotic agents; Z79.899 Other long term (current) drug therapy

== ENCOUNTER 2019-04-19 02:00 | Emergency (ER) | payer MEDICAID ==
[~2019-04-19] VITALS: Ht 193 cm; Wt 100.0 kg
[~2019-04-19 02:00] MED LIST changes: +DEBR6.5S4 AU
[2019-04-19] MEDS ORDERED: ACET300T52 (02:07)
[2019-04-19 02:25] VITALS: BP 136/78
[2019-04-19] MEDS ORDERED: ONDANSETRON 4 MG ORAL DISINTEGRATING TAB (Q0162 PER 1MG) As Ordered ONE (02:28)
[2019-04-19] MEDS ORDERED: IBUPROFEN 600 MG TAB As Ordered ONE (02:28)
[2019-04-19] MEDS ORDERED: IBUPROFEN 600 MG TAB PO ONE (02:45)
[2019-04-19] MEDS ORDERED: ONDANSETRON 4 MG ORAL DISINTEGRATING TAB (Q0162 PER 1MG) PO ONE (02:45)
== END 2019-04-19 02:43 | disposition left against medical advice (07) ==
LOC: M ED 02:00
DX: Z53.21 Procedure and treatment not carried out due to patient leaving prior to being seen by health care provider (principal)

== ENCOUNTER 2019-04-24 12:35 | Emergency (ER) | payer MEDICAID ==
[~2019-04-24] VITALS: Ht 193 cm; Wt 102.3 kg
[2019-04-24 12:35] VITALS: BP 112/76
[2019-04-24] MEDS ORDERED: ACET300T52 PO (15:33)
[2019-04-24] MEDS ORDERED: NORC1TAB7 PO (15:52)
== END 2019-04-24 14:14 | disposition left against medical advice (07) ==
LOC: M ED 12:35
DX: Z53.21 Procedure and treatment not carried out due to patient leaving prior to being seen by health care provider (principal)

== ENCOUNTER 2019-04-24 14:19 | Emergency (ER) | payer OTHER ==
[~2019-04-24] VITALS: Ht 182.9 cm; Wt 107.5 kg
[2019-04-24 14:20] VITALS: BP 158/86
[2019-04-24] MEDS ORDERED: ACET300T52 PO (15:33)
[2019-04-24] MEDS ORDERED: NORC1TAB7 PO (15:52)
== END 2019-04-24 16:10 | disposition home or self-care (01) ==
LOC: M ED 14:19
DX: Z76.0 Encounter for issue of repeat prescription (principal); G89.29 Other chronic pain; M54.2 Cervicalgia; F17.210 Nicotine dependence, cigarettes, uncomplicated; Z88.0 Allergy status to penicillin; Z88.1 Allergy status to other antibiotic agents; Z88.5 Allergy status to narcotic agent; Z79.899 Other long term (current) drug therapy

== ENCOUNTER 2019-04-29 10:43 | Emergency (ER) | payer OTHER ==
[~2019-04-29] VITALS: Ht 182.9 cm; Wt 107.1 kg
[2019-04-29 10:43] VITALS: BP 148/87
[2019-04-29] MEDS ORDERED: NORC1TAB7 PO (11:08)
== END 2019-04-29 11:18 | disposition home or self-care (01) ==
LOC: M ED 10:43
DX: Z76.0 Encounter for issue of repeat prescription (principal); G89.29 Other chronic pain; M54.2 Cervicalgia; F17.210 Nicotine dependence, cigarettes, uncomplicated; Z88.0 Allergy status to penicillin; Z88.5 Allergy status to narcotic agent; Z79.891 Long term (current) use of opiate analgesic

== ENCOUNTER 2019-05-06 18:32 | Emergency (ER) | payer OTHER ==
[~2019-05-06] VITALS: Ht 193 cm; Wt 105.7 kg
[2019-05-06] MEDS ORDERED: NORCO 5/325MG TABLET (BULK FOR ED) PO ONE (19:15)
[2019-05-06 19:22] VITALS: BP 125/85
== END 2019-05-06 19:25 | disposition home or self-care (01) ==
LOC: M ED 18:32
DX: Z76.0 Encounter for issue of repeat prescription (principal); G89.29 Other chronic pain; M54.2 Cervicalgia; Z88.0 Allergy status to penicillin; Z88.5 Allergy status to narcotic agent; Z88.8 Allergy status to other drugs, medicaments and biological substances; F17.210 Nicotine dependence, cigarettes, uncomplicated

== ENCOUNTER 2019-05-12 18:47 | Emergency (ER) | payer OTHER ==
[~2019-05-12] VITALS: Ht 193 cm; Wt 102.3 kg
[2019-05-12] MEDS ORDERED: NORC1TAB7 PO (20:44)
[2019-05-12 20:51] VITALS: BP 112/73
== END 2019-05-12 20:53 | disposition home or self-care (01) ==
LOC: M ED 18:47
DX: Z76.0 Encounter for issue of repeat prescription (principal); G89.29 Other chronic pain; M25.511 Pain in right shoulder; M54.2 Cervicalgia; F17.210 Nicotine dependence, cigarettes, uncomplicated; Z88.0 Allergy status to penicillin; Z88.5 Allergy status to narcotic agent

== ENCOUNTER 2019-05-16 14:04 | Emergency (ER) | payer OTHER ==
[~2019-05-16] VITALS: Ht 193 cm; Wt 104.3 kg
[2019-05-16 14:04] VITALS: BP 127/90
[2019-05-16] MEDS ORDERED: HYDR-3713 PO (14:51)
== END 2019-05-16 15:41 | disposition home or self-care (01) ==
LOC: M ED 14:04
DX: Z76.0 Encounter for issue of repeat prescription (principal); G89.29 Other chronic pain; M25.511 Pain in right shoulder; Z88.0 Allergy status to penicillin; Z88.5 Allergy status to narcotic agent; Z88.8 Allergy status to other drugs, medicaments and biological substances

== ENCOUNTER 2019-05-21 17:34 | Emergency (ER) | payer OTHER ==
[~2019-05-21] VITALS: Ht 193 cm; Wt 108.0 kg
[2019-05-21 17:34] VITALS: BP 142/86
[2019-05-21] MEDS ORDERED: GABA-843 (17:44)
[2019-05-21] MEDS ORDERED: ROBA750T4 PO (18:03)
[2019-05-21] MEDS ORDERED: MOBI4TAB PO (18:03)
[2019-05-21] MEDS ORDERED: NORC1TAB7 PO (18:06)
== END 2019-05-21 18:12 | disposition home or self-care (01) ==
LOC: M ED 17:34
DX: Z76.0 Encounter for issue of repeat prescription (principal); G89.29 Other chronic pain; M54.2 Cervicalgia; Z88.0 Allergy status to penicillin; Z88.1 Allergy status to other antibiotic agents; Z88.5 Allergy status to narcotic agent; Z79.891 Long term (current) use of opiate analgesic

== ENCOUNTER → 2019-06-03 | Outpatient (REF) | payer SELFPAY ==
[~2019-06-03] MED LIST changes: +ROBA750T4 PO
== END ==
LOC: M LAB REF 16:23
PROVIDERS: ATTEND Physician Assistant
DX: M79.601 Pain in right arm (principal); M54.2 Cervicalgia

== ENCOUNTER 2019-06-07 13:52 | Emergency (ER) | payer OTHER, SELFPAY ==
[~2019-06-07] VITALS: Ht 193 cm; Wt 104.5 kg
[2019-06-07 16:13] VITALS: BP 125/84
[2019-06-07] MEDS ORDERED: KETOROLAC 30 MG/ML VIAL (J1885) IM ONE (16:15)
== END 2019-06-07 16:17 | disposition home or self-care (01) ==
LOC: M ED 13:52
DX: G89.29 Other chronic pain (principal); M54.2 Cervicalgia; M25.519 Pain in unspecified shoulder; F17.210 Nicotine dependence, cigarettes, uncomplicated; Z88.1 Allergy status to other antibiotic agents; Z88.5 Allergy status to narcotic agent
CPT/HCPCS: 96372; 99283; J1885

== ENCOUNTER → 2019-07-11 | Outpatient (REF) | payer SELFPAY | LOC: M LAB REF 16:37 | PROVIDERS: ATTEND Physician Assistant | DX: M54.2 Cervicalgia (principal); M79.601 Pain in right arm; Z79.891 Long term (current) use of opiate analgesic ==

== ENCOUNTER 2019-08-20 00:53 | Emergency (ER) | payer OTHER, SELFPAY ==
[~2019-08-20] VITALS: Ht 193 cm; Wt 102.8 kg
[2019-08-20 00:53] VITALS: BP 135/83
[2019-08-20] MEDS ORDERED: LIDOCAINE 4% CREAM 5GM (LMX4) TOP ONE (01:30)
[2019-08-20] MEDS ORDERED: KETOROLAC 60 MG/2 ML VIAL (J1885) IM ONE (01:30)
[2019-08-20] MEDS ORDERED: ANEC4CRE3 TOP (01:39)
--- NOTE | 2019-08-20 08:37 | REP ---
Clinical: Trauma. Fall. . Technique: Internal rotation, external rotation, and Y view right shoulder . Findings: No acute fracture or dislocation. The acromioclavicular and glenohumeral joints are intact. No periarticular calcifications or degenerative changes are appreciated. Sub acromial space is normal. Surrounding soft tissues are unremarkable. Impression: No acute fracture or dislocation. Electronically Signed by Dre Negro MD 08/20/2019 08:29 A
== END 2019-08-20 02:44 | disposition home or self-care (01) ==
LOC: M ED 00:53
DX: S16.1XXA Strain of muscle, fascia and tendon at neck level, initial encounter (principal); M25.511 Pain in right shoulder; W01.0XXA Fall on same level from slipping, tripping and stumbling without subsequent striking against object, initial encounter; Y92.9 Unspecified place or not applicable; F17.210 Nicotine dependence, cigarettes, uncomplicated; Z88.1 Allergy status to other antibiotic agents; Z88.5 Allergy status to narcotic agent; Z79.899 Other long term (current) drug therapy

== ENCOUNTER 2019-08-25 04:59 | Emergency (ER) | payer OTHER, SELFPAY ==
[~2019-08-25] VITALS: Ht 193 cm; Wt 102.8 kg
[2019-08-25 04:59] VITALS: BP 135/81
[~2019-08-25 04:59] MED LIST changes: +ANEC4CRE3 TOP
[2019-08-25] MEDS ORDERED: ADACEL/BOOSTRIX VACCINE (DIPHTH/PERTUSS/ACELL/TETANUS)0.5ML SYR (90715) IM ONE (06:15)
[2019-08-25] MEDS ORDERED: LIDOCAINE 2% MDV 20 ML VIAL SC ONE (06:15)
[2019-08-25] MEDS ORDERED: CLIN150C14 PO (06:51)
--- NOTE | 2019-08-25 09:03 | REP ---
RIGHT INDEX FINGER SERIES: FOUR VIEWS. HISTORY: Injury to the right index finger, rule out fracture or foreign body. FINDINGS: Four views of the right index finger demonstrate a chip fracture at the DIP joint of the index finger apparently arising from the articular margin of the distal end of the middle phalanx. There is an overlying soft tissue deficit consistent with a laceration. There is lack of complete extension of the DIP joint suggesting extensor tendon injury. IMPRESSION: Findings consistent with opened intra-articular chip fracture at the DIP joint of the index finger with probable extensor tendon injury. Electronically Signed by Guero Powell MD 08/25/2019 11:04 A
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
== END 2019-08-25 07:03 | disposition home or self-care (01) ==
LOC: M ED 04:59
DX: S61.220A Laceration with foreign body of right index finger without damage to nail, initial encounter (principal); W26.0XXA Contact with knife, initial encounter; Y92.019 Unspecified place in single-family (private) house as the place of occurrence of the external cause; G89.29 Other chronic pain; M54.2 Cervicalgia; F17.210 Nicotine dependence, cigarettes, uncomplicated; Z88.1 Allergy status to other antibiotic agents; Z88.5 Allergy status to narcotic agent

== ENCOUNTER 2019-12-08 08:48 | Emergency (ER) | payer OTHER, SELFPAY ==
[~2019-12-08] VITALS: Ht 193 cm; Wt 101.7 kg
[~2019-12-08 08:48] MED LIST changes: +CLIN150C14 PO; +CYCL-707 PO; -CYCL10TA PO; -NABU-119 PO; +NABU-53 PO
[2019-12-08 08:50] VITALS: BP 116/68
[2019-12-08] MEDS ORDERED: ROBA750T4 PO (09:26)
== END 2019-12-08 09:48 | disposition home or self-care (01) ==
LOC: M ED 08:48
DX: M54.2 Cervicalgia (principal); Z88.0 Allergy status to penicillin; Z88.5 Allergy status to narcotic agent; Z88.8 Allergy status to other drugs, medicaments and biological substances

== ENCOUNTER 2020-01-21 15:05 | Emergency (ER) | payer OTHER ==
[~2020-01-21] VITALS: Ht 188 cm; Wt 98.2 kg
[2020-01-21 15:05] VITALS: BP 121/70
[2020-01-21] MEDS ORDERED: MOBI4TAB PO (15:38)
[2020-01-21] MEDS ORDERED: TIZA2CAP PO (15:38)
[2020-01-21] MEDS ORDERED: NORCO, ANEXSIA 5/325MG TABLET (HYDROcodone/ACETAMINOPHEN) PO ONE (15:45)
== END 2020-01-21 16:10 | disposition home or self-care (01) ==
LOC: M ED 15:05
DX: G89.29 Other chronic pain (principal); M54.2 Cervicalgia; Z88.1 Allergy status to other antibiotic agents; Z88.6 Allergy status to analgesic agent

== ENCOUNTER 2020-06-26 14:17 | Emergency (ER) | payer OTHER, SELFPAY ==
[~2020-06-26] VITALS: Ht 193 cm; Wt 104.6 kg
[~2020-06-26 14:17] MED LIST changes: -CLIN150C14 PO; +CLIN150C15 PO; +GABA-282; +GABA-282 PO; -GABA-843; -GABA-843 PO; +TIZA2CAP PO
[2020-06-26] MEDS ORDERED: KETOROLAC TROMETHAMINE 10 MG TAB PO ONE (16:00)
--- NOTE | 2020-06-26 16:25 | REP ---
INDICATION: fell. COMPARISON: None. TECHNIQUE: Three views of the shoulder were performed. FINDINGS: The acromioclavicular and glenohumeral relationships are within normal limits. There is no acute fracture or destructive osseous lesion. IMPRESSION: Within normal limits <Electronically signed by Joon Stahl > 06/26/20 [id number]
--- NOTE | 2020-06-26 16:27 | REP ---
INDICATION: fell COMPARISON: 11/20/2014 TECHNIQUE: Five views FINDINGS: There is tricompartmental marginal osteophytosis status quo. There is mild tricompartmental narrowing which is unchanged. There is no evidence of an acute fracture, dislocation, or subluxation. IMPRESSION: Stable appearing chronic changes. <Electronically signed by Joon Stahl > 06/26/20 [id number]
[2020-06-26 16:43] VITALS: BP 125/87
== END 2020-06-26 16:45 | disposition home or self-care (01) ==
LOC: M ED 14:17
DX: S46.911A Strain of unspecified muscle, fascia and tendon at shoulder and upper arm level, right arm, initial encounter (principal); M25.562 Pain in left knee; W10.8XXA Fall (on) (from) other stairs and steps, initial encounter; Y92.019 Unspecified place in single-family (private) house as the place of occurrence of the external cause; Y93.9 Activity, unspecified; Y99.9 Unspecified external cause status; Z88.1 Allergy status to other antibiotic agents; Z88.6 Allergy status to analgesic agent; Z87.891 Personal history of nicotine dependence

== ENCOUNTER 2021-11-22 14:47 | Emergency (ER) | payer MEDICAID, SELFPAY ==
[~2021-11-22] VITALS: Ht 182.9 cm; Wt 110.4 kg
[2021-11-22 14:47] VITALS: BP 117/76
[~2021-11-22 14:47] MED LIST changes: -CLIN150C15 PO; +CLIN150C17 PO; -NABU-53 PO; +NABU-73 PO
[2021-11-22] MEDS ORDERED: BUPR1SUB35 (15:02)
== END 2021-11-22 18:18 | disposition left against medical advice (07) ==
LOC: M ED 14:47
DX: Z53.21 Procedure and treatment not carried out due to patient leaving prior to being seen by health care provider (principal)

== ENCOUNTER 2023-07-23 03:21 | Emergency (ER) | payer MEDICAID, OTHER ==
[~2023-07-23] VITALS: Ht 190.5 cm; Wt 109.1 kg
[~2023-07-23 03:21] MED LIST changes: +BUPR1SUB35
[2023-07-23 03:40] VITALS: TEMP 97.1
[2023-07-23 04:05] LABS: BASO # 0.1 10^3/uL (0.0-0.2); BASO % 0.7 % (0.0-1.0); EOS # 0.2 10^3/uL (0.0-0.5); EOS % 2.3 % (0.0-3.0); HEMATOCRIT 41.2 % (42.0-52.0); HEMOGLOBIN 13.8 g/dl (13.5-17.5); LYMPH # 1.9 10^3/uL (1.5-5.0); LYMPH % 18.3 % (24.0-44.0); MEAN CORPUSCULAR HEMOGLOBIN 29.2 pg (27.0-33.0); MEAN CORPUSCULAR HGB CONC 33.5 g/dl (32.0-36.5); MEAN CORPUSCULAR VOLUME 87.3 fl (80.0-96.0); MONO # 0.6 10^3/uL (0.0-0.8); MONO % 5.8 % (2.0-8.0); NEUTROPHILS # 7.5 10^3/uL (1.5-8.5); NEUTROPHILS % 72.5 % (36.0-66.0); PLATELET COUNT, AUTOMATED 285 10^3/uL (150-450); RED BLOOD COUNT 4.72 10^6/uL (4.30-6.10); WHITE BLOOD COUNT 10.3 10^3/uL (4.0-10.0)
[2023-07-23] MEDS: NS 1,000 ML IV ONE (04:18)
[2023-07-23 04:24] LABS: LIPASE 18 U/L (12-53)
[2023-07-23 04:26] LABS: ALBUMIN 3.7 G/DL (3.2-5.2); ALKALINE PHOSPHATASE 81 U/L (46-116); ALT/SGPT 11 U/L (7.0-40); AST/SGOT 15 U/L (<34); BILIRUBIN,DIRECT 0.1 MG/DL (<0.4); BILIRUBIN,TOTAL 0.3 MG/DL (0.3-1.2); BLOOD UREA NITROGEN 23 MG/DL (9-23); CALCIUM LEVEL 8.8 MG/DL (8.5-10.1); CARBON DIOXIDE LEVEL 24 MMOL/L (20-31); CHLORIDE LEVEL 111 MMOL/L (98-107); CREATININE FOR GFR 0.97 MG/DL (0.70-1.30); GLOMERULAR FILTRATION RATE > 60.0 (>60); GLUCOSE, FASTING 86 MG/DL (60-100); POTASSIUM SERUM 3.6 MMOL/L (3.5-5.1); SODIUM LEVEL 143 MMOL/L (136-145); TOTAL PROTEIN 6.2 G/DL (5.7-8.2)
[2023-07-23] MEDS ORDERED: ISOVUE-370 76% 100ML VIAL As Ordered ONE (04:48)
[2023-07-23 06:00] VITALS: BP 125/78; O2SAT 95
[2023-07-23] MEDS ORDERED: FLOM0.4C39 PO (06:13)
[2023-07-23] MEDS ORDERED: PERC5TAB12 PO (06:14)
== END 2023-07-23 06:37 | disposition home or self-care (01) ==
LOC: M ED 03:21
DX: N20.1 Calculus of ureter (principal); Z88.0 Allergy status to penicillin; Z88.5 Allergy status to narcotic agent; Z79.891 Long term (current) use of opiate analgesic; Z79.899 Other long term (current) drug therapy
CPT/HCPCS: 36415; 74177; 76870; 80048; 80076; 81001; 83690; 85025; 93041; 93976; 99284; Q9967

== ENCOUNTER 2023-10-06 15:48 | Emergency (ER) | payer OTHER, SELFPAY ==
[~2023-10-06] VITALS: Ht 190.5 cm; Wt 107.7 kg
[~2023-10-06 15:48] MED LIST changes: +FLOM0.4C39 PO
[2023-10-06 15:52] VITALS: BP 126/77; TEMP 97.2; O2SAT 100
== END 2023-10-06 16:00 | disposition left against medical advice (07) ==
LOC: M ED 15:48 → EDBD 15:48 → M ED 16:00
DX: Z53.21 Procedure and treatment not carried out due to patient leaving prior to being seen by health care provider (principal)

== ENCOUNTER 2023-10-14 18:49 | Emergency (ER) | payer SELFPAY ==
[~2023-10-14] VITALS: Ht 190.5 cm; Wt 114.7 kg
[2023-10-14 18:49] VITALS: BP 129/73; TEMP 97.3; O2SAT 97
[2023-10-14 21:32] LABS: HEMATOCRIT 36.9 % (42.0-52.0); HEMOGLOBIN 12.1 g/dl (13.5-17.5); MEAN CORPUSCULAR HEMOGLOBIN 29.2 pg (27.0-33.0); MEAN CORPUSCULAR HGB CONC 32.8 g/dl (32.0-36.5); MEAN CORPUSCULAR VOLUME 88.9 fl (80.0-96.0); PLATELET COUNT, AUTOMATED 384 10^3/uL (150-450); RED BLOOD COUNT 4.15 10^6/uL (4.30-6.10); WHITE BLOOD COUNT 12.6 10^3/uL (4.0-10.0)
[2023-10-14 21:53] LABS: ATYPICAL LYMPH 11 % (0-5); BASOPHILS 1 % (0-1); EOSINOPHILS 7 % (0-3); LYMPHOCYTES 21 % (16-44); MONOCYTES 1 % (0-5); NEUTROPHILS 59 % (28-66)
[2023-10-14 21:54] LABS: PLATELET ESTIMATE NORMAL (NORMAL)
[2023-10-14 22:11] LABS: ALBUMIN 3.5 G/DL (3.2-5.2); ALKALINE PHOSPHATASE 84 U/L (46-116); ALT/SGPT 13 U/L (7.0-40); AST/SGOT 13 U/L (<34); BILIRUBIN,TOTAL 0.2 MG/DL (0.3-1.2); BLOOD UREA NITROGEN 16 MG/DL (9-23); CALCIUM LEVEL 9.2 MG/DL (8.5-10.1); CARBON DIOXIDE LEVEL 31 MMOL/L (20-31); CHLORIDE LEVEL 110 MMOL/L (98-107); CREATININE FOR GFR 0.77 MG/DL (0.70-1.30); GLOMERULAR FILTRATION RATE > 60.0 (>60); GLUCOSE, FASTING 89 MG/DL (60-100); POTASSIUM SERUM 4.8 MMOL/L (3.5-5.1); SODIUM LEVEL 143 MMOL/L (136-145); TOTAL PROTEIN 6.4 G/DL (5.7-8.2)
== END 2023-10-14 21:38 | disposition left against medical advice (07) ==
LOC: M ED 18:49
DX: Z53.21 Procedure and treatment not carried out due to patient leaving prior to being seen by health care provider (principal)

== ENCOUNTER 2023-11-06 06:06 | Emergency (ER) | payer SELFPAY ==
[~2023-11-06] VITALS: Ht 210.8 cm; Wt 102.6 kg
[2023-11-06 06:16] VITALS: BP 140/96; TEMP 98.4; O2SAT 100
== END 2023-11-06 06:21 | disposition left against medical advice (07) ==
LOC: M ED 06:06
DX: Z53.21 Procedure and treatment not carried out due to patient leaving prior to being seen by health care provider (principal)

== ENCOUNTER 2024-04-03 20:19 | Emergency (ER) | payer OTHER ==
[~2024-04-03] VITALS: Ht 190.5 cm; Wt 106.0 kg
[~2024-04-03 20:19] MED LIST changes: +GABA-1172; +GABA-1172 PO; -GABA-282; -GABA-282 PO
[2024-04-03] MEDS: CLINDAMYCIN 150MG CAPSULE PO ONE (21:45)
[2024-04-03 21:51] LABS: HEMATOCRIT 39.3 % (42.0-52.0); HEMOGLOBIN 12.7 g/dl (13.5-17.5); MEAN CORPUSCULAR HEMOGLOBIN 28.5 pg (27.0-33.0); MEAN CORPUSCULAR HGB CONC 32.3 g/dl (32.0-36.5); MEAN CORPUSCULAR VOLUME 88.1 fl (80.0-96.0); PLATELET COUNT, AUTOMATED 257 10^3/uL (150-450); RED BLOOD COUNT 4.46 10^6/uL (4.30-6.10); WHITE BLOOD COUNT 9.6 10^3/uL (4.0-10.0)
[2024-04-03 22:07] LABS: BARBITURATES URINE NEGATIVE (NEGATIVE); BENZODIAZEPINES URINE NEGATIVE (NEGATIVE); METHADONE URINE NEGATIVE (NEGATIVE); PHENCYCLIDINE URINE NEGATIVE (NEGATIVE)
[2024-04-03 22:11] LABS: AMPHETAMINES LEVEL URINE POSITIVE (NEGATIVE); CANNABINOIDS URINE POSITIVE (NEGATIVE); COCAINE METABOLITE URINE POSITIVE (NEGATIVE); OPIATES URINE POSITIVE (NEGATIVE)
[2024-04-03 22:22] LABS: ETHYL ALCOHOL (ETHANOL) < 0.003 % (0.000-0.010)
[2024-04-03 22:24] LABS: ALBUMIN 3.5 G/DL (3.2-5.2); ALKALINE PHOSPHATASE 83 U/L (40-129); ALT/SGPT 16 U/L (7.0-40); AST/SGOT 8 U/L (<34); BILIRUBIN,DIRECT 0.1 MG/DL (<0.4); BILIRUBIN,TOTAL 0.3 MG/DL (0.3-1.2); BLOOD UREA NITROGEN 23 MG/DL (9-23); CALCIUM LEVEL 9.6 MG/DL (8.5-10.1); CARBON DIOXIDE LEVEL 30 MMOL/L (20-31); CHLORIDE LEVEL 107 MMOL/L (98-107); CREATININE FOR GFR 0.83 MG/DL (0.70-1.30); GLOMERULAR FILTRATION RATE > 60.0 (>60); GLUCOSE, FASTING 85 MG/DL (60-100); POTASSIUM SERUM 4.2 MMOL/L (3.5-5.1); SALICYLATE LEVEL < 3.0 MG/DL (<30); SODIUM LEVEL 141 MMOL/L (136-145); TOTAL PROTEIN 6.7 G/DL (5.7-8.2)
[2024-04-03 22:26] LABS: THYROID STIMULATING HORMONE 2.543 uIU/ML (0.55-4.78)
[2024-04-03] MEDS: DOXYCYCLINE HYCLATE 100MG TABLET PO ONE (22:31)
[2024-04-03] MEDS ORDERED: DOXY-441 PO (23:00)
[2024-04-03] MEDS ORDERED: CLEO150C PO (23:00)
[2024-04-03 23:18] VITALS: BP 136/85; TEMP 98.3; O2SAT 98
== END 2024-04-03 23:27 | disposition home or self-care (01) ==
LOC: M ED 20:19
DX: F43.0 Acute stress reaction (principal); S61.431A Puncture wound without foreign body of right hand, initial encounter; S61.432A Puncture wound without foreign body of left hand, initial encounter; W55.01XA Bitten by cat, initial encounter; F32.A Depression, unspecified; F17.200 Nicotine dependence, unspecified, uncomplicated; Z79.2 Long term (current) use of antibiotics; Z79.899 Other long term (current) drug therapy; Y92.009 Unspecified place in unspecified non-institutional (private) residence as the place of occurrence of the external cause; Y93.89 Activity, other specified; Y99.9 Unspecified external cause status

== ENCOUNTER 2025-01-08 05:25 | Emergency (ER) | payer OTHER ==
[~2025-01-08] VITALS: Ht 193 cm; Wt 102.3 kg
[~2025-01-08 05:25] MED LIST changes: +CLEO150C PO; +DOXY-441 PO; -FLOM0.4C39 PO; +LIDO1ADH93 TD; -LIDO5DIS41 TD; +TAMS-18 PO
[2025-01-08] MEDS: METHADONE 10 MG TAB PO ONE (08:07)
[2025-01-08 08:29] VITALS: BP 143/78; TEMP 98.8; O2SAT 93
== END 2025-01-08 08:31 | disposition home or self-care (01) ==
LOC: M ED 05:25
DX: F11.23 Opioid dependence with withdrawal (principal); Z76.0 Encounter for issue of repeat prescription; F17.200 Nicotine dependence, unspecified, uncomplicated; Z88.1 Allergy status to other antibiotic agents; Z88.5 Allergy status to narcotic agent
CPT/HCPCS: 99284; S0109

== ENCOUNTER 2025-02-03 20:14 | Emergency (ER) | payer OTHER ==
[~2025-02-03] VITALS: Ht 190.5 cm; Wt 70.4 kg
[~2025-02-03 20:14] MED LIST changes: -IBUP-1022 PO; +IBUP600T42 PO
[2025-02-03 22:41] VITALS: BP 135/80; TEMP 98.3; O2SAT 99
== END 2025-02-04 00:20 | disposition left against medical advice (07) ==
LOC: M ED 20:14
DX: Z53.21 Procedure and treatment not carried out due to patient leaving prior to being seen by health care provider (principal)

== ENCOUNTER 2025-05-19 13:51 | Inpatient (IN) | payer OTHER ==
[~2025-05-19] VITALS: Ht 190.5 cm; Wt 125.1 kg
[2025-05-19 15:11] LABS: C REACTIVE PROTEIN QUANTITATIV 6.98 MG/DL (<1.0); CALCIUM LEVEL 8.9 MG/DL (8.5-10.1); CARBON DIOXIDE LEVEL 27 MMOL/L (20-31); CHLORIDE LEVEL 108 MMOL/L (98-107); CREATININE FOR GFR 0.92 MG/DL (0.70-1.30); GLOMERULAR FILTRATION RATE > 90.0 (>60); POTASSIUM SERUM 4.6 MMOL/L (3.5-5.1); SODIUM LEVEL 143 MMOL/L (136-145)
[2025-05-19 15:14] LABS: BASO # 0.1 10^3/uL (0.0-0.2); BASO % 0.7 % (0.0-1.0); EOS # 0.3 10^3/uL (0.0-0.5); EOS % 2.4 % (0.0-3.0); LYMPH # 3.1 10^3/uL (1.5-5.0); LYMPH % 26.3 % (24.0-44.0); MONO # 0.9 10^3/uL (0.0-0.8); MONO % 7.9 % (2.0-8.0); NEUTROPHILS # 7.4 10^3/uL (1.5-8.5); NEUTROPHILS % 62.3 % (36.0-66.0); PLATELET COUNT, AUTOMATED 282 10^3/uL (150-450)
[2025-05-19] MEDS ORDERED: ISOVUE-370 76% 100 ML VIAL As Ordered ONE (15:54)
[2025-05-19] MEDS: dexAMETHasone 4 MG/ML 1 ML VIAL IV ONE ×2 (18:06→20:48)
[2025-05-19] MEDS: NS (Normal Saline) 0.9% 1,000 ML IV ONE (18:06)
[2025-05-19] MEDS: KETOROLAC 30 MG/ML 1 ML VIAL IV ONE (18:06)
[2025-05-19] MEDS ORDERED: ACETAMINOPHEN *IV* 1,000 MG in IV 1 EA IV PRN (18:30)
[2025-05-19] MEDS ORDERED: METH10CO PO (19:18)
[2025-05-19] MEDS ORDERED: MED REC IN PROGRESS XX SCH (19:20)
[2025-05-19] MEDS: AMPICILLIN SOD/SULBACTAM SOD 3 GM in DEXTROSE 5% (D5W) MINI-BAG PLU 100 ML IV ONE (19:39)
[2025-05-19] MEDS: LR 1,000 ML IV SCH (20:23)
[2025-05-19 22:14] VITALS: BP 114/57; TEMP 97.3; O2SAT 98
[2025-05-20] MEDS: AMPICILLIN SOD/SULBACTAM SOD 3 GM in DEXTROSE 5% (D5W) MINI-BAG PLU 100 ML IV SCH (02:41)
[2025-05-20 03:47] VITALS: BP 110/50; TEMP 98.6; O2SAT 97
[2025-05-20 06:19] LABS: BASO # 0.0 10^3/uL (0.0-0.2); BASO % 0.1 % (0.0-1.0); EOS # 0.0 10^3/uL (0.0-0.5); EOS % 0.0 % (0.0-3.0); LYMPH # 1.6 10^3/uL (1.5-5.0); LYMPH % 14.6 % (24.0-44.0); MONO # 0.3 10^3/uL (0.0-0.8); MONO % 2.6 % (2.0-8.0); NEUTROPHILS # 8.8 10^3/uL (1.5-8.5); NEUTROPHILS % 82.1 % (36.0-66.0); PLATELET COUNT, AUTOMATED 274 10^3/uL (150-450)
[2025-05-20 06:48] LABS: CALCIUM LEVEL 9.1 MG/DL (8.5-10.1); CARBON DIOXIDE LEVEL 26 MMOL/L (20-31); CHLORIDE LEVEL 108 MMOL/L (98-107); CREATININE FOR GFR 0.67 MG/DL (0.70-1.30); GLOMERULAR FILTRATION RATE > 90.0 (>60); POTASSIUM SERUM 4.6 MMOL/L (3.5-5.1); SODIUM LEVEL 141 MMOL/L (136-145)
[2025-05-20] MEDS ORDERED: HOME MED LIST COMPLETE! XX SCH (07:15)
[2025-05-20 08:30] VITALS: BP 119/61; TEMP 97.6; O2SAT 96
[2025-05-20 09:45] LABS: AMPHETAMINES LEVEL URINE NEGATIVE (NEGATIVE); BARBITURATES URINE NEGATIVE (NEGATIVE); BENZODIAZEPINES URINE NEGATIVE (NEGATIVE)
[2025-05-20 09:46] LABS: CANNABINOIDS URINE NEGATIVE (NEGATIVE); OPIATES URINE NEGATIVE (NEGATIVE); PHENCYCLIDINE URINE NEGATIVE (NEGATIVE)
[2025-05-20 09:47] LABS: COCAINE METABOLITE URINE POSITIVE (NEGATIVE); METHADONE URINE POSITIVE (NEGATIVE)
[2025-05-20] MEDS: METHADONE 10 MG TAB PO ONE (13:08)
[2025-05-20 20:07] VITALS: BP 115/58; TEMP 98.2; O2SAT 96
[2025-05-21] VITALS (10 sets, daily range): BP systolic 98–145; BP diastolic 59–85; TEMP 97.2–98.4; O2SAT 96–100
[2025-05-21 06:32] LABS: BASO # 0.0 10^3/uL (0.0-0.2); BASO % 0.3 % (0.0-1.0); EOS # 0.1 10^3/uL (0.0-0.5); EOS % 0.8 % (0.0-3.0); LYMPH # 3.4 10^3/uL (1.5-5.0); LYMPH % 26.5 % (24.0-44.0); MONO # 0.7 10^3/uL (0.0-0.8); MONO % 5.5 % (2.0-8.0); NEUTROPHILS # 8.4 10^3/uL (1.5-8.5); NEUTROPHILS % 66.2 % (36.0-66.0); PLATELET COUNT, AUTOMATED 234 10^3/uL (150-450)
[2025-05-21] MEDS ORDERED: HOME MED LIST COMPLETE! XX SCH (06:40)
[2025-05-21 07:04] LABS: CALCIUM LEVEL 8.5 MG/DL (8.5-10.1); CARBON DIOXIDE LEVEL 28 MMOL/L (20-31); CHLORIDE LEVEL 107 MMOL/L (98-107); CREATININE FOR GFR 0.83 MG/DL (0.70-1.30); GLOMERULAR FILTRATION RATE > 90.0 (>60); MAGNESIUM LEVEL 2.1 MG/DL (1.8-2.4); POTASSIUM SERUM 4.2 MMOL/L (3.5-5.1); SODIUM LEVEL 143 MMOL/L (136-145)
[2025-05-21] MEDS ORDERED: HYDROmorphone HCL 2 MG/ML 1 ML VIAL As Ordered ONE (11:41)
[2025-05-21] MEDS ORDERED: KETAMINE HCL 200 MG/20 ML VIAL As Ordered ONE (11:42)
[2025-05-21] MEDS ORDERED: MIDAZOLAM INJ 2 MG/2 ML VIAL As Ordered ONE (11:42)
[2025-05-21] MEDS ORDERED: dexAMETHasone 4 MG/ML 1 ML VIAL As Ordered ONE (11:44)
[2025-05-21] MEDS ORDERED: LIDOCAINE 2% 100 MG/5 ML SDV (FOR ANES.) As Ordered ONE (11:45)
[2025-05-21] MEDS ORDERED: SUCCINYLCHOLINE 100MG/5ML SYRINGE As Ordered ONE (11:45)
[2025-05-21] MEDS ORDERED: ONDANSETRON 4MG/2ML VIAL As Ordered ONE (11:45)
[2025-05-21] MEDS ORDERED: ESMOLOL 100 MG/10 ML VIAL As Ordered ONE (13:19)
[2025-05-21] MEDS: CHLORHEXIDINE GLUCONATE 0.12% 15 ML UDC As Ordered ONE (13:25)
[2025-05-21] MEDS: UNASYN 3 GM VIAL As Ordered ONE (13:40)
[2025-05-21] MEDS ORDERED: HYDROMORPHONE HCL 0.5 MG/0.5 ML SYRINGE IV PRN (13:45)
[2025-05-22 04:44] VITALS: BP 116/66; TEMP 97.9; O2SAT 96
[2025-05-22 06:26] LABS: BASO # 0.0 10^3/uL (0.0-0.2); BASO % 0.2 % (0.0-1.0); EOS # 0.0 10^3/uL (0.0-0.5); EOS % 0.1 % (0.0-3.0); LYMPH # 2.5 10^3/uL (1.5-5.0); LYMPH % 19.3 % (24.0-44.0); MONO # 0.7 10^3/uL (0.0-0.8); MONO % 5.1 % (2.0-8.0); NEUTROPHILS # 9.6 10^3/uL (1.5-8.5); NEUTROPHILS % 74.3 % (36.0-66.0); PLATELET COUNT, AUTOMATED 266 10^3/uL (150-450)
[2025-05-22 06:29] LABS: CALCIUM LEVEL 9.0 MG/DL (8.5-10.1); CARBON DIOXIDE LEVEL 28 MMOL/L (20-31); CHLORIDE LEVEL 104 MMOL/L (98-107); CREATININE FOR GFR 0.73 MG/DL (0.70-1.30); GLOMERULAR FILTRATION RATE > 90.0 (>60); POTASSIUM SERUM 4.3 MMOL/L (3.5-5.1); SODIUM LEVEL 141 MMOL/L (136-145)
[2025-05-22] MEDS: METHADONE 10 MG TAB PO SCH (07:18)
[2025-05-22 08:05] VITALS: BP 120/67; TEMP 98.3; O2SAT 96
[2025-05-22] MEDS: METHADONE 10 MG TAB PO ONE (12:18)
[2025-05-22] MEDS ORDERED: AMOX875T2 PO (12:40)
[2025-05-22 13:00] VITALS: BP 126/70; TEMP 98.1; O2SAT 96
[2025-05-22] MEDS: AUGMENTIN 875 MG TAB PO SCH (13:12)
== END 2025-05-22 14:14 | disposition home or self-care (01) | DRG 114 ==
LOC: M ED 13:51 → M ED INP 17:53 → M MSPAV 22:14
PROVIDERS: ADMIT Student in an Organized Health Care Education/Training Program; ATTEND Student in an Organized Health Care Education/Training Program
PROC: 0CDXXZ1 Extraction of Lower Tooth, Multiple, External Approach (ICD-10-PCS; principal; 2025-05-21 08:30)
DX: K12.2 Cellulitis and abscess of mouth (principal); F17.210 Nicotine dependence, cigarettes, uncomplicated; F14.90 Cocaine use, unspecified, uncomplicated; K02.9 Dental caries, unspecified; Z88.5 Allergy status to narcotic agent; Z88.0 Allergy status to penicillin